=== PATIENT | male | born 1955 | race Caucasian/White ===

== ENCOUNTER 2016-10-20 07:51 | Emergency (ER) | payer OTHER ==
[~2016-10-20] VITALS: Ht 175.3 cm; Wt 79.5 kg
[~2016-10-20 07:51] MED LIST: TRAMADOL HCL50 MG PO
[2016-10-20] MEDS ORDERED: ACYCLOVIR200 MG PO (08:13)
[2016-10-20] MEDS ORDERED: NORCO 5/3251 TABLET PO (08:13)
[2016-10-20 08:29] VITALS: BP 139/74
== END 2016-10-20 08:30 | disposition home or self-care (01) ==
LOC: EME 07:51
DX: B02.9 Zoster without complications (principal); M79.7 Fibromyalgia
CPT/HCPCS: 99281; 99283

== ENCOUNTER 2016-10-25 07:28 | Emergency (ER) | payer OTHER ==
[~2016-10-25] VITALS: Ht 175.3 cm; Wt 97.0 kg
[~2016-10-25 07:28] MED LIST changes: +ACYCLOVIR200 MG PO; +NORCO 5/3251 TABLET PO
[2016-10-25] MEDS ORDERED: FLEXERIL10 MG PO (07:47)
[2016-10-25] MEDS ORDERED: NORCO 5/3251 TABLET PO (07:47)
[2016-10-25 08:16] VITALS: BP 146/80
== END 2016-10-25 08:17 | disposition home or self-care (01) ==
LOC: EME 07:28
DX: B02.9 Zoster without complications (principal)
CPT/HCPCS: 99281; 99283